=== PATIENT | male | born 1985 | race Caucasian/White ===

== ENCOUNTER 2023-05-26 08:50 | Emergency (ER) | payer OTHER ==
[~2023-05-26] VITALS: Ht 167.6 cm; Wt 68.2 kg
[2023-05-26] MEDS ORDERED: KETOROLAC TROMETHAMINE 30 MG/ML VIAL IVP ONE (09:30)
[2023-05-26] MEDS ORDERED: ONDANSETRON HCL 4 MG/2 ML VIAL IVP ONE (09:30)
[2023-05-26] MEDS ORDERED: SODIUM CHLORIDE 0.9% 1,000 ML IV ONE (09:30)
[2023-05-26 10:15] LABS: BASOPHILS % (AUTO) 0.4 % (0.0-2.0); EOSINOPHILS % (AUTO) 1.5 % (1.0-6.0); HEMATOCRIT 45.3 % (41-53); HEMOGLOBIN 14.5 g/dL (13.5-17.5); LYMPHOCYTES # (AUTO) 1.1 K/uL (1.0-4.8); LYMPHOCYTES % (AUTO) 10.7 % (22.0-44.0); MEAN CORPUSCULAR HEMOGLOBIN 26.4 pg (26.0-34.0); MEAN CORPUSCULAR HGB CONC 32.1 G/dL (31.0-37.0); MEAN CORPUSCULAR VOLUME 82 fL (80-100); MONOCYTES # (AUTO) 0.5 K/uL (0.1-1.0); MONOCYTES % (AUTO) 4.6 % (2.0-9.0); NEUTROPHILS # (AUTO) 8.8 K/uL (1.8-7.7); NEUTROPHILS % (AUTO) 82.8 % (40.0-70.0); PLATELET COUNT (AUTO) 176 K/uL (150-450); RED BLOOD CELL COUNT(AUTO) 5.51 MIL/uL (4.50-5.90); RED CELL DISTRIBUTION WIDTH 14.1 % (11.5-14.5); WHITE BLOOD COUNT (AUTO) 10.6 K/uL (4.5-11.0)
[2023-05-26 10:32] LABS: ANION GAP 5 mmol/L (8-16); CALCIUM, TOTAL 8.9 mg/dL (8.8-10.5); CARBON DIOXIDE 30 mmol/L (22-29); CHLORIDE 100 mmol/L (98-107); CREATININE 1.09 mg/dL (0.60-1.30); GLOMERULAR FILTR. RATE CALC > 60 mL/min (>60); GLUCOSE,RANDOM 107 mg/dL (70-110); SODIUM SERUM 135 mmol/L (136-145); UREA NITROGEN, BLOOD 11 mg/dL (7-18)
[2023-05-26 10:39] LABS: ALANINE AMINOTRANSFERASE 18 U/L (12-78); ALKALINE PHOSPHATASE 87 U/L (46-116); ASPARTATE AMINOTRANSFERASE 18 U/L (15-37); BILIRUBIN,TOTAL 0.2 mg/dL (0.1-1.0); LIPASE 45 U/L (16-77); TOTAL PROTEIN, SERUM 7.9 g/dL (6.4-8.2)
[2023-05-26 11:48] LABS: APPEARANCE,URINE CLEAR (CLEAR); BILIRUBIN,URINE NEGATIVE (NEGATIVE); COLOR,URINE LIGHT YELLOW (YELLOW); GLUCOSE, URINE (UA) NEGATIVE (NEGATIVE); KETONES,URINE NEGATIVE (NEGATIVE); LEUKOCYTE ESTERASE ,URINE NEGATIVE (NEGATIVE); NITRATE,URINE NEGATIVE (NEGATIVE); OCCULT BLOOD,URINE LARGE (NEGATIVE); PH,URINE 6.5 (5.0-8.0); PROTEIN,URINE TRACE mg/dL (NEGATIVE); SPECIFIC GRAVITIY, URINE 1.016 (1.003-1.030); UROBILINOGEN,URINE <=1.0 mg/dL (<=1.0)
[2023-05-26] MEDS ORDERED: TAMSULOSIN HCL 0.4 MG CAPSULE PO ONE (12:00)
[2023-05-26 12:40] LABS: BACTERIA,URINE None Seen /HPF (None Seen); RBC,URINE 51-100 /HPF (0-2); SQUAMOUS EPITHELIAL CELL,UR Few /LPF (None Seen); WBC,URINE 0-2 /HPF (0-5)
[2023-05-26 13:34] VITALS: TEMP 98.4
[2023-05-26] MEDS ORDERED: HYDR-4723 PO (13:35)
[2023-05-26 13:50] VITALS: BP 109/77; PULSE 69; RESP 16
== END 2023-05-26 13:55 | disposition home or self-care (01) ==
LOC: EMS 08:56
DX: N20.1 Calculus of ureter (principal); F17.210 Nicotine dependence, cigarettes, uncomplicated; Z90.49 Acquired absence of other specified parts of digestive tract; Z98.890 Other specified postprocedural states
CPT/HCPCS: 99285; 74176; 96374; 96361; 96375; 80053; 81001; 83690; 85025; 36415; J1885; J2405; J7030

== ENCOUNTER 2023-07-08 22:24 | Inpatient (IN) | payer OTHER ==
[~2023-07-08] VITALS: Ht 165.1 cm; Wt 66.7 kg
[~2023-07-08 22:24] MED LIST: HYDR-4723 PO
[2023-07-08 22:51] LABS: GLUCOMETER DEV NAME(LOC) ER.6; GLUCOSE,POINT OF CARE 319 MG/DL (70-110)
[2023-07-08] MEDS ORDERED: SODIUM CHLORIDE 0.9% 2,050 ML IV ONE (23:00)
[2023-07-08 23:30] LABS: ANION GAP 11 mmol/L (8-16); CALCIUM, TOTAL 9.1 mg/dL (8.8-10.5); CARBON DIOXIDE 25 mmol/L (22-29); CHLORIDE 98 mmol/L (98-107); GLOMERULAR FILTR. RATE CALC > 60 mL/min (>60); GLUCOSE,RANDOM 206 mg/dL (70-110); POTASSIUM 4.6 mmol/L (3.5-5.1); SODIUM SERUM 134 mmol/L (136-145); UREA NITROGEN, BLOOD 13 mg/dL (7-18)
[2023-07-08] MEDS ORDERED: PIPERACILLIN SODIUM/TAZOBACTAM 4.5 GM in DEXTROSE 5%-WATER 100 ML IV ONE (23:30)
[2023-07-08] MEDS ORDERED: AZITHROMYCIN 500 MG/NS 250 ML IV ONE (23:30)
[2023-07-08 23:33] LABS: BASOPHILS % (AUTO) 0.2 % (0.0-2.0); EOSINOPHILS % (AUTO) 0.1 % (1.0-6.0); HEMATOCRIT 46.5 % (41-53); HEMOGLOBIN 15.2 g/dL (13.5-17.5); LYMPHOCYTES # (AUTO) 0.5 K/uL (1.0-4.8); LYMPHOCYTES % (AUTO) 3.6 % (22.0-44.0); MEAN CORPUSCULAR HEMOGLOBIN 26.6 pg (26.0-34.0); MEAN CORPUSCULAR HGB CONC 32.6 G/dL (31.0-37.0); MEAN CORPUSCULAR VOLUME 82 fL (80-100); MONOCYTES # (AUTO) 0.4 K/uL (0.1-1.0); MONOCYTES % (AUTO) 2.7 % (2.0-9.0); NEUTROPHILS # (AUTO) 13.6 K/uL (1.8-7.7); NEUTROPHILS % (AUTO) 93.4 % (40.0-70.0); PLATELET COUNT (AUTO) 170 K/uL (150-450); RED CELL DISTRIBUTION WIDTH 13.3 % (11.5-14.5); WHITE BLOOD COUNT (AUTO) 14.6 K/uL (4.5-11.0)
[2023-07-08 23:34] LABS: INR 1.2 (0.9-1.1); PROTHROMBIN TIME 12.4 SEC (9.4-11.6)
[2023-07-08 23:42] LABS: ALANINE AMINOTRANSFERASE 70 U/L (12-78); ALBUMIN 4.4 g/dL (3.4-5.0); ALKALINE PHOSPHATASE 75 U/L (46-116); ASPARTATE AMINOTRANSFERASE 73 U/L (15-37); BILIRUBIN,TOTAL 0.5 mg/dL (0.1-1.0); CREATINE KINASE, TOTAL ONLY 452 U/L (39-308); TOTAL PROTEIN, SERUM 8.8 g/dL (6.4-8.2); TROPONIN I-HIGH SENSITIVITY 24 ng/L (<76)
[2023-07-08 23:51] LABS: ABG BASE EXCESS -1.4 mmol/L (-2.0-3.0); ABG CARBOXYHEMOGLOBIN 2.9 % (0.0-1.5); ABG HCO3 23.2 mmol/L (22.0-26.0); ABG METHEMOGLOBIN 0.1 % (0.0-1.5); ABG OXYGEN CONTENT 18.9 mL/dL (15.0-23.0); ABG OXYGEN SATURATION 91.3 % (95.0-98.0); ABG OXYHEMOGLOBIN 88.6 % (94.0-100.0); ABG PCO2 42 mmHg (35-45); ABG PH 7.377 (7.350-7.450); ABG TOTAL HEMOGLOBIN 15.2 G/dL (12.0-18.0); O2 DEVICE,BLOOD GAS CANNULA (ROOM AIR); PO2, ARTERIAL BG 58.5 mmHg (92.0-100.0); SITE, BLOOD GAS RT BRACHIAL; SOURCE, BLOOD GAS ARTERIAL; TEMPERATURE, FAHRENHEIT, BG 97.5 FAHREN (96.0-98.6)
[2023-07-08 23:57] LABS: B-TYPE NATRIURETIC PEPTIDE < 5 pg/mL (0-100); RBC MORPHOLOGY COMMENT NORMAL RBC MORPH
[2023-07-09 00:53] LABS: LACTIC ACID 5.8 mmol/L (0.4-2.0)
[2023-07-09 04:38] LABS: COVID AG,FIA SOURCE NASAL SWAB
[2023-07-09 05:09] LABS: SARS-COV2 (COVID) ANTIGEN,FIA Negative (Negative)
[2023-07-09 05:51] LABS: APPEARANCE,URINE CLEAR (CLEAR); BILIRUBIN,URINE NEGATIVE (NEGATIVE); COLOR,URINE LIGHT YELLOW (YELLOW); GLUCOSE, URINE (UA) 300-500 mg/dL (NEGATIVE); LEUKOCYTE ESTERASE ,URINE NEGATIVE (NEGATIVE); NITRATE,URINE NEGATIVE (NEGATIVE); OCCULT BLOOD,URINE NEGATIVE (NEGATIVE); PROTEIN,URINE TRACE mg/dL (NEGATIVE); SPECIFIC GRAVITIY, URINE 1.017 (1.003-1.030); UROBILINOGEN,URINE <=1.0 mg/dL (<=1.0)
[2023-07-09 06:01] LABS: ALCOHOL, URINE DRUG SCREEN NEGATIVE (NEGATIVE); AMPHET/METH SCREEN,URINE POSITIVE (NEGATIVE); BARBITURATE SCREEN, URINE NEGATIVE (NEGATIVE); BENZODIAZEPINES SCREEN,URINE NEGATIVE (NEGATIVE); CANNABINOID SCREEN,URINE POSITIVE (NEGATIVE); COCAINE SCREEN,URINE NEGATIVE (NEGATIVE); METHADONE SCREEN, URINE NEGATIVE (NEGATIVE); OPIATE SCREEN,URINE NEGATIVE (NEGATIVE); PHENCYCLIDINE SCREEN,URINE NEGATIVE (NEGATIVE)
[2023-07-09 06:05] LABS: BACTERIA,URINE None Seen /HPF (None Seen); RBC,URINE None Seen /HPF (0-2); SQUAMOUS EPITHELIAL CELL,UR None Seen /LPF (None Seen); WBC,URINE 0-2 /HPF (0-5)
[2023-07-09] MEDS ORDERED: IOHEXOL 350 MG/ML 100 ML VIAL ONE (07:01)
[2023-07-09] MEDS ORDERED: SODIUM CHLORIDE 0.9% 100 ML ONE (07:01)
[2023-07-09 07:31] LABS: HEMATOCRIT 42.8 % (41-53); HEMOGLOBIN 13.9 g/dL (13.5-17.5)
[2023-07-09] MEDS ORDERED: PIPERACILLIN/TAZO 3.375 GM/D5W 50 ML IV ONE (10:00)
[2023-07-09] MEDS ORDERED: INSULIN LISPRO 100 UNITS/ML SQ PRN (10:00)
[2023-07-09] MEDS ORDERED: DEXTROSE 50%-WATER 25 GM/50 ML SYRINGE IVP PRN (10:00)
[2023-07-09] MEDS ORDERED: MAGNESIUM HYDROXIDE SUSPENSION 30 ML UDCUP PO PRN (10:00)
[2023-07-09] MEDS ORDERED: ONDANSETRON HCL 4 MG/2 ML VIAL IVP PRN (10:00)
[2023-07-09] MEDS: PANTOPRAZOLE SODIUM 40 MG/VIAL IVP SCH (11:12)
[2023-07-09] MEDS: ACETAMINOPHEN 325 MG TABLET PO PRN ×2 (11:13→17:24)
[2023-07-09 12:00] VITALS: BP 103/67; PULSE 65; RESP 16; TEMP 98.1
[2023-07-09] MEDS ORDERED: SODIUM CHLORIDE 0.9% 250 ML IV ONE (13:10)
[2023-07-09] MEDS: PIPERACILLIN/TAZO 3.375 GM/D5W 50 ML IV SCH ×3 (13:12→23:17)
[2023-07-09 16:00] VITALS: BP 91/57; PULSE 69; TEMP 97.8
[2023-07-09] MEDS ORDERED: PIPERACILLIN/TAZO 3.375 GM/D5W 50 ML IV SCH (16:00)
[2023-07-09 19:31] LABS: GLUCOSE,POINT OF CARE 78 MG/DL (70-110)
[2023-07-09 19:31] LABS: GLUCOSE,POINT OF CARE 88 MG/DL (70-110)
[2023-07-09 20:00] VITALS: BP 102/59; PULSE 63; TEMP 98.6
[2023-07-09 20:37] LABS: MTB PCR w/Rif. Resistance-SPUT NOT DETECTED (Not Detectd)
[2023-07-10] VITALS: BP 96/68; PULSE 55; TEMP 97.7
[2023-07-10 04:11] VITALS: BP 93/53; PULSE 73; TEMP 97.8
[2023-07-10] MEDS: PIPERACILLIN/TAZO 3.375 GM/D5W 50 ML IV SCH ×2 (05:10→12:59)
[2023-07-10 05:21] LABS: GLUCOSE,POINT OF CARE 80 MG/DL (70-110)
[2023-07-10 05:27] LABS: BASOPHILS % (AUTO) 0.9 % (0.0-2.0); EOSINOPHILS % (AUTO) 2.8 % (1.0-6.0); HEMATOCRIT 41.1 % (41-53); HEMOGLOBIN 13.5 g/dL (13.5-17.5); LYMPHOCYTES # (AUTO) 2.1 K/uL (1.0-4.8); LYMPHOCYTES % (AUTO) 27.2 % (22.0-44.0); MEAN CORPUSCULAR HEMOGLOBIN 26.7 pg (26.0-34.0); MEAN CORPUSCULAR HGB CONC 32.9 G/dL (31.0-37.0); MEAN CORPUSCULAR VOLUME 81 fL (80-100); MONOCYTES # (AUTO) 0.5 K/uL (0.1-1.0); MONOCYTES % (AUTO) 6.9 % (2.0-9.0); NEUTROPHILS # (AUTO) 4.7 K/uL (1.8-7.7); NEUTROPHILS % (AUTO) 62.2 % (40.0-70.0); PLATELET COUNT (AUTO) 133 K/uL (150-450); RED BLOOD CELL COUNT(AUTO) 5.06 MIL/uL (4.50-5.90); RED CELL DISTRIBUTION WIDTH 13.4 % (11.5-14.5); WHITE BLOOD COUNT (AUTO) 7.6 K/uL (4.5-11.0)
[2023-07-10 05:56] LABS: ANION GAP 5 mmol/L (8-16); CALCIUM, TOTAL 8.4 mg/dL (8.8-10.5); CARBON DIOXIDE 29 mmol/L (22-29); CHLORIDE 101 mmol/L (98-107); CREATININE 1.03 mg/dL (0.60-1.30); GLOMERULAR FILTR. RATE CALC > 60 mL/min (>60); GLUCOSE,RANDOM 89 mg/dL (70-110); POTASSIUM 3.5 mmol/L (3.5-5.1); SODIUM SERUM 135 mmol/L (136-145); UREA NITROGEN, BLOOD 11 mg/dL (7-18)
[2023-07-10 06:31] LABS: GLUCOMETER DEV NAME(LOC) PVLAB.39; GLUCOSE,POINT OF CARE 154 MG/DL (70-110)
[2023-07-10 07:07] LABS: HIV 1-2 SCREEN 4TH GEN W/RFLX Non Reactive (Non Reactive)
[2023-07-10] MEDS ORDERED: 0.9% SODIUM CHLORIDE 15 ML NEB SOLUTION NEB ONE (07:59)
[2023-07-10 08:00] VITALS: BP 125/60; PULSE 59; TEMP 98.4
[2023-07-10] MEDS: PANTOPRAZOLE SODIUM 40 MG/VIAL IVP SCH (09:17)
[2023-07-10 11:46] LABS: GLUCOMETER DEV NAME(LOC) PVLAB.39; GLUCOSE,POINT OF CARE 100 MG/DL (70-110)
[2023-07-10 13:24] LABS: MTB PCR w/Rif. Resistance-SPUT NOT DETECTED (Not Detectd)
[2023-07-10 13:33] VITALS: PULSE 78
[2023-07-10 13:36] VITALS: BP 100/80; PULSE 77; TEMP 97.9
[2023-07-10 18:59] LABS: MTB PCR w/Rif. Resistance-SPUT NOT DETECTED (Not Detectd)
[2023-07-11 05:07] LABS: QUANTIFERON+,Mitogen Value 2.73 IU/mL; QUANTIFERON, TB GOLD PLUS Negative (Negative)
[2023-07-16 13:06] LABS: COCCI IGG TITER COMP.FIX-KERN <1:2; COCCIOIDES AB IGG (ID)-KERN Non Reactive; COCCIOIDES AB IGM (ID)-KERN Non Reactive
== END 2023-07-10 15:19 | disposition left against medical advice (07) | DRG 812 ==
LOC: EMS 22:25 → ICU 07-09 09:33
PROVIDERS: ADMIT Internal Medicine; ATTEND Internal Medicine
DX: T40.411A Poisoning by fentanyl or fentanyl analogs, accidental (unintentional), initial encounter (principal); J96.01 Acute respiratory failure with hypoxia; J69.0 Pneumonitis due to inhalation of food and vomit; G92.9 Unspecified toxic encephalopathy; E11.65 Type 2 diabetes mellitus with hyperglycemia; Z53.29 Procedure and treatment not carried out because of patient's decision for other reasons; Z20.822 Contact with and (suspected) exposure to COVID-19; R65.10 Systemic inflammatory response syndrome (SIRS) of non-infectious origin without acute organ dysfunction; R04.2 Hemoptysis; F17.210 Nicotine dependence, cigarettes, uncomplicated; Z87.442 Personal history of urinary calculi; Z90.49 Acquired absence of other specified parts of digestive tract; Y92.89 Other specified places as the place of occurrence of the external cause
CPT/HCPCS: 36600; 71045; 71046; 71275; 80048; 80053; 80307; 81001; 82009; 82550; 82805; 82962; 83605; 83880; 84484; 85014; 85018; 85025; 85610; 85730; 86171; 86480; 87015; 87081; 87206; 87389; 87556; 93005; 94640; 99291; C9113; J0456; J2543; J7030; J7050; J7060; Q9967; 36415-L1; 36415-TC; 82803-TC

== ENCOUNTER 2023-07-13 15:38 | Emergency (ER) | payer OTHER ==
[~2023-07-13] VITALS: Ht 165.1 cm; Wt 63.6 kg
[2023-07-13 15:48] VITALS: TEMP 98
[2023-07-13 17:14] LABS: BASOPHILS % (AUTO) 0.8 % (0.0-2.0); EOSINOPHILS % (AUTO) 4.2 % (1.0-6.0); HEMATOCRIT 39.6 % (41-53); LYMPHOCYTES # (AUTO) 1.6 K/uL (1.0-4.8); LYMPHOCYTES % (AUTO) 24.6 % (22.0-44.0); MEAN CORPUSCULAR HEMOGLOBIN 26.8 pg (26.0-34.0); MEAN CORPUSCULAR HGB CONC 32.8 G/dL (31.0-37.0); MEAN CORPUSCULAR VOLUME 82 fL (80-100); MONOCYTES # (AUTO) 0.5 K/uL (0.1-1.0); MONOCYTES % (AUTO) 8.3 % (2.0-9.0); NEUTROPHILS % (AUTO) 62.1 % (40.0-70.0); PLATELET COUNT (AUTO) 182 K/uL (150-450); RED BLOOD CELL COUNT(AUTO) 4.85 MIL/uL (4.50-5.90); RED CELL DISTRIBUTION WIDTH 13.3 % (11.5-14.5); WHITE BLOOD COUNT (AUTO) 6.5 K/uL (4.5-11.0)
[2023-07-13 17:22] LABS: ANION GAP 9 mmol/L (8-16); CALCIUM, TOTAL 9.1 mg/dL (8.8-10.5); CARBON DIOXIDE 27 mmol/L (22-29); CHLORIDE 105 mmol/L (98-107); CREATININE 0.87 mg/dL (0.60-1.30); GLOMERULAR FILTR. RATE CALC > 60 mL/min (>60); GLUCOSE,RANDOM 94 mg/dL (70-110); POTASSIUM 3.7 mmol/L (3.5-5.1); SODIUM SERUM 141 mmol/L (136-145); UREA NITROGEN, BLOOD 13 mg/dL (7-18)
[2023-07-13 17:30] LABS: TROPONIN I-HIGH SENSITIVITY 4 ng/L (<76)
[2023-07-13 17:36] LABS: APPEARANCE,URINE CLEAR (CLEAR); BILIRUBIN,URINE NEGATIVE (NEGATIVE); COLOR,URINE LIGHT YELLOW (YELLOW); GLUCOSE, URINE (UA) NEGATIVE (NEGATIVE); KETONES,URINE NEGATIVE (NEGATIVE); LEUKOCYTE ESTERASE ,URINE NEGATIVE (NEGATIVE); NITRATE,URINE NEGATIVE (NEGATIVE); OCCULT BLOOD,URINE NEGATIVE (NEGATIVE); PROTEIN,URINE NEGATIVE (NEGATIVE); SPECIFIC GRAVITIY, URINE 1.017 (1.003-1.030); UROBILINOGEN,URINE <=1.0 mg/dL (<=1.0)
[2023-07-13 17:47] LABS: ALANINE AMINOTRANSFERASE 27 U/L (12-78); ALBUMIN 3.4 g/dL (3.4-5.0); ALKALINE PHOSPHATASE 75 U/L (46-116); ASPARTATE AMINOTRANSFERASE 16 U/L (15-37); BILIRUBIN,TOTAL 0.5 mg/dL (0.1-1.0); CREATINE KINASE, TOTAL ONLY 115 U/L (39-308); TOTAL PROTEIN, SERUM 6.9 g/dL (6.4-8.2)
[2023-07-13 19:06] VITALS: BP 116/70; PULSE 70; RESP 18
== END 2023-07-13 19:08 | disposition home or self-care (01) ==
LOC: EMS 15:38
DX: R07.89 Other chest pain (principal); F17.210 Nicotine dependence, cigarettes, uncomplicated; F11.90 Opioid use, unspecified, uncomplicated; Z90.49 Acquired absence of other specified parts of digestive tract; Z98.890 Other specified postprocedural states
CPT/HCPCS: 71045; 80053; 81003; 82550; 84484; 85025; 93005; 99285; 36415-L1; 36415-TC

== ENCOUNTER 2024-01-17 13:37 | Emergency (ER) | payer OTHER ==
[~2024-01-17] VITALS: Ht 162.6 cm; Wt 70.5 kg
[2024-01-17 14:23] VITALS: TEMP 97.7
[2024-01-17] MEDS ORDERED: BUPR1TAB45 SL (14:28)
[2024-01-17] MEDS ORDERED: CEPH-558 PO (15:18)
[2024-01-17] MEDS ORDERED: MUPI15CR12 TP (15:18)
[2024-01-17] MEDS ORDERED: IBUP-1554 PO (15:18)
[2024-01-17] MEDS ORDERED: DOXY-354 PO (15:18)
[2024-01-17 16:30] VITALS: BP 118/73; PULSE 74; RESP 16
== END 2024-01-17 16:46 | disposition home or self-care (01) ==
LOC: EMS 13:37
DX: T16.2XXA Foreign body in left ear, initial encounter (principal); J34.0 Abscess, furuncle and carbuncle of nose; F17.210 Nicotine dependence, cigarettes, uncomplicated; Z90.49 Acquired absence of other specified parts of digestive tract; Z98.890 Other specified postprocedural states; W44.8XXA Other foreign body entering into or through a natural orifice, initial encounter; Y93.89 Activity, other specified; Y92.89 Other specified places as the place of occurrence of the external cause; Y99.8 Other external cause status
CPT/HCPCS: 69200; 99284; Z7502

== ENCOUNTER 2025-02-13 18:59 | Emergency (ER) | payer OTHER ==
[~2025-02-13] VITALS: Ht 162.6 cm; Wt 54.5 kg
[~2025-02-13 18:59] MED LIST changes: +BUPR1TAB45 SL; +CEPH-558 PO; +DOXY-354 PO; -HYDR-4723 PO; +IBUP-1554 PO; +MUPI15CR12 TP
[2025-02-13] MEDS ORDERED: ALBU18HF12 IH (19:17)
[2025-02-13] MEDS: IBUPROFEN 600 MG TABLET PO ONE ×2 (19:46→21:00)
[2025-02-13] MEDS: HYDROmorphone HCL 2 MG/ML SYRINGE IM ONE (21:00)
[2025-02-13] MEDS: ONDANSETRON HCL 4 MG/2 ML VIAL IM ONE (21:00)
[2025-02-13] MEDS ORDERED: ACET-2080 PO (21:42)
[2025-02-13 21:51] VITALS: BP 114/75; PULSE 76; RESP 18; O2SAT 99
== END 2025-02-13 21:52 | disposition home or self-care (01) ==
LOC: EMS 18:59
DX: S46.911A Strain of unspecified muscle, fascia and tendon at shoulder and upper arm level, right arm, initial encounter (principal); J45.909 Unspecified asthma, uncomplicated; F17.210 Nicotine dependence, cigarettes, uncomplicated; Z79.899 Other long term (current) drug therapy; Z90.49 Acquired absence of other specified parts of digestive tract; W51.XXXA Accidental striking against or bumped into by another person, initial encounter; Y92.89 Other specified places as the place of occurrence of the external cause; Y93.67 Activity, basketball; Y99.8 Other external cause status
CPT/HCPCS: 99284; 73030; 96372; J1171; J2405

== ENCOUNTER 2025-05-25 20:43 | Emergency (ER) | payer OTHER ==
[~2025-05-25] VITALS: Ht 165.1 cm; Wt 65.9 kg
[~2025-05-25 20:43] MED LIST changes: +ACET-2080 PO; +ALBU18HF12 IH; -BUPR1TAB45 SL; -CEPH-558 PO; -DOXY-354 PO; -MUPI15CR12 TP
[2025-05-25 21:09] VITALS: BP 115/76; PULSE 68; RESP 17; TEMP 97.5; O2SAT 97
== END 2025-05-26 00:10 | disposition home or self-care (01) ==
LOC: EMS 20:43
DX: S46.011A Strain of muscle(s) and tendon(s) of the rotator cuff of right shoulder, initial encounter (principal); J45.909 Unspecified asthma, uncomplicated; F17.210 Nicotine dependence, cigarettes, uncomplicated; Z90.49 Acquired absence of other specified parts of digestive tract; X50.1XXA Overexertion from prolonged static or awkward postures, initial encounter; Y93.89 Activity, other specified; Y92.89 Other specified places as the place of occurrence of the external cause; Y99.8 Other external cause status
CPT/HCPCS: 99283

== ENCOUNTER 2025-07-12 16:19 | Emergency (ER) | payer OTHER ==
[~2025-07-12] VITALS: Ht 165.1 cm; Wt 70.0 kg
[~2025-07-12 16:19] MED LIST changes: +AMOX500C2 PO; +HYDR-4062 PO; +IBUP-1493 PO
[2025-07-12 16:25] VITALS: BP 116/64; PULSE 69; RESP 20; TEMP 97.9; O2SAT 97
[2025-07-12 17:02] LABS: PLATELET COUNT (AUTO) 186 K/uL (150-450); RED BLOOD CELL COUNT(AUTO) 5.12 MIL/uL (4.50-5.90); RED CELL DISTRIBUTION WIDTH 13.2 % (11.5-14.5); WHITE BLOOD COUNT (AUTO) 5.3 K/uL (4.5-11.0)
[2025-07-12 17:13] LABS: CALCIUM, TOTAL 8.6 mg/dL (8.8-10.5); CREATININE 0.98 mg/dL (0.60-1.30); GLOMERULAR FILTR. RATE CALC > 60 mL/min (>60); GLUCOSE,RANDOM 87 mg/dL (70-110); SODIUM SERUM 141 mmol/L (136-145); UREA NITROGEN, BLOOD 12 mg/dL (7-18)
[2025-07-12] MEDS ORDERED: 0.9% SODIUM CHLORIDE 10 ML SYRINGE IVP ONE (17:27)
[2025-07-12] MEDS ORDERED: SODIUM CHLORIDE 0.9% 100 ML ONE (17:27)
[2025-07-12] MEDS ORDERED: IOHEXOL 350 MG/ML 100 ML VIAL ONE (17:27)
[2025-07-12 17:31] LABS: APPEARANCE,URINE CLEAR (CLEAR); GLUCOSE, URINE (UA) NEGATIVE (NEGATIVE); LEUKOCYTE ESTERASE ,URINE NEGATIVE (NEGATIVE); NITRATE,URINE NEGATIVE (NEGATIVE); OCCULT BLOOD,URINE NEGATIVE (NEGATIVE); SPECIFIC GRAVITIY, URINE 1.020 (1.003-1.030)
[2025-07-12 17:39] LABS: ASPARTATE AMINOTRANSFERASE 21.0 U/L (15-37); TOTAL PROTEIN, SERUM 7.4 g/dL (6.4-8.2)
[2025-07-12] MEDS: SODIUM CHLORIDE 0.9% 1,000 ML IV ONE (17:39)
[2025-07-12] MEDS: ONDANSETRON HCL 4 MG/2 ML VIAL IVP ONE (17:39)
[2025-07-12] MEDS: KETOROLAC TROMETHAMINE 30 MG/ML VIAL IVP ONE (17:39)
[2025-07-12] MEDS ORDERED: IBUP-1492 PO (19:15)
== END 2025-07-12 20:02 | disposition home or self-care (01) ==
LOC: EMS 16:19
DX: N20.0 Calculus of kidney (principal); R30.0 Dysuria; F17.210 Nicotine dependence, cigarettes, uncomplicated; R10.A2 Flank pain, left side; J45.909 Unspecified asthma, uncomplicated; Z90.49 Acquired absence of other specified parts of digestive tract; Z87.442 Personal history of urinary calculi; Z98.890 Other specified postprocedural states
CPT/HCPCS: 99285; 74177; 96374; 96375; 80048; 80076; 81003; 85025; 36415; J1885; Q9967; J2405; J7030; J7050